=== PATIENT | female | born 2005 | race African-American/Black ===

== ENCOUNTER 2025-03-20 17:13 | Inpatient (IN) | payer MEDICARE, MEDICAID ==
[~2025-03-20] VITALS: Ht 153 cm; Wt 95.9 kg
[2025-03-20 18:21] LABS: PLATELET COUNT (AUTO) 248 K/uL (150-450); RED BLOOD CELL COUNT(AUTO) 4.51 MIL/uL (4.00-5.20); RED CELL DISTRIBUTION WIDTH 13.7 % (11.5-14.5); WHITE BLOOD COUNT (AUTO) 8.9 K/uL (4.5-11.0)
[2025-03-20 18:28] LABS: CALCIUM, TOTAL 8.7 mg/dL (8.8-10.5); CREATININE 0.84 mg/dL (0.60-1.30); GLOMERULAR FILTR. RATE CALC > 60 mL/min (>60); GLUCOSE,RANDOM 112 mg/dL (70-110); SODIUM SERUM 139 mmol/L (136-145); UREA NITROGEN, BLOOD 8 mg/dL (7-18)
[2025-03-20 18:59] LABS: PH,URINE DRUG SCREEN 6.0 (5.0-8.0)
[2025-03-20 19:15] LABS: ALCOHOL, URINE DRUG SCREEN NEGATIVE (NEGATIVE); AMPHET/METH SCREEN,URINE NEGATIVE (NEGATIVE); BARBITURATE SCREEN, URINE NEGATIVE (NEGATIVE); CANNABINOID SCREEN,URINE NEGATIVE (NEGATIVE); COCAINE SCREEN,URINE NEGATIVE (NEGATIVE); METHADONE SCREEN, URINE NEGATIVE (NEGATIVE)
[2025-03-20 19:36] LABS: COVID AG,FIA SOURCE NASAL SWAB
[2025-03-20] MEDS: ZOLPIDEM TARTRATE 10 MG TABLET PO PRN (19:38)
[2025-03-20 19:58] LABS: SARS-COV2 (COVID) ANTIGEN,FIA Negative (Negative)
[2025-03-20 23:55] VITALS: BP 116/86; PULSE 76; RESP 16; TEMP 97.3; O2SAT 99
[2025-03-21] MEDS: ATOMOXETINE HCL 40 MG CAPSULE PO SCH (08:24)
[2025-03-21] MEDS: DIVALPROEX SODIUM 500 MG DR TABLET PO SCH (08:24)
[2025-03-21 09:00] VITALS: BP 150/98; PULSE 96; RESP 8; TEMP 98
[2025-03-21] MEDS ORDERED: MAGNESIUM HYDROXIDE SUSPENSION 30 ML UDCUP PO PRN (10:30)
[2025-03-21] MEDS ORDERED: GuaiFENesin/D-METHORPHAN [SUGAR-FREE] 200-20MG/10 ML SYRUP UDCUP PO PRN (10:30)
[2025-03-21] MEDS ORDERED: NICOTINE 14 MG/24 HOUR PATCH TD PRN (10:30)
[2025-03-21] MEDS ORDERED: ALBUTEROL SULFATE HFA 90 MCG/PUFF 8 GM INHALER IH PRN (10:30)
[2025-03-21] MEDS ORDERED: LOPERAMIDE HCL 2 MG CAPSULE PO PRN (10:30)
[2025-03-21] MEDS ORDERED: ONDANSETRON 4 MG TABLET PO PRN (10:30)
[2025-03-21] MEDS ORDERED: PETROLATUM,WHITE 28 GM JELLY TP PRN (10:30)
[2025-03-21] MEDS ORDERED: MAG HYDROX/ALUMINUM HYD/SIMETH ES 30 ML SUSPENSION UDCUP PO PRN (10:30)
[2025-03-21] MEDS ORDERED: ACETAMINOPHEN 325 MG TABLET PO PRN (10:30)
[2025-03-21] MEDS ORDERED: IBUPROFEN 400 MG TABLET PO PRN (10:30)
[2025-03-21] MEDS ORDERED: DOCUSATE SODIUM 100 MG CAPSULE PO PRN (10:30)
[2025-03-21] MEDS: LURASIDONE HCL 60 MG TABLET PO SCH (17:54)
[2025-03-21] MEDS: TERBINAFINE HCL 1% 30 GM CREAM TP SCH (19:59)
[2025-03-21] MEDS: MELATONIN 5 MG TABLET PO SCH (21:03)
[2025-03-21 22:45] VITALS: BP 132/73; PULSE 91; RESP 16; TEMP 97.9; O2SAT 99
[2025-03-22 08:05] LABS: CHOL/HDL RATIO 4.2 (3.9-5.7); LDL CHOL (CALC.) 111.0 mg/dL (0-130)
[2025-03-22 14:12] VITALS: BP 112/63; PULSE 87; RESP 16; TEMP 98; O2SAT 99
[2025-03-22 20:00] VITALS: BP 117/62; PULSE 90; RESP 16; TEMP 97.9; O2SAT 99
[2025-03-23 10:45] VITALS: BP 109/74; PULSE 99; RESP 18; TEMP 97.8; O2SAT 98
[2025-03-23 22:20] VITALS: BP 108/66; PULSE 77; RESP 18; TEMP 98; O2SAT 100
[2025-03-24 10:16] VITALS: BP 125/81; PULSE 93; RESP 18; TEMP 97.7; O2SAT 99
[2025-03-24 23:56] VITALS: BP 108/74; PULSE 82; RESP 16; TEMP 98.9; O2SAT 97
[2025-03-25 12:52] VITALS: BP 119/71; PULSE 98; RESP 18; TEMP 98.4; O2SAT 97
[2025-03-25 22:38] VITALS: BP 131/80; PULSE 99; RESP 18; TEMP 97.7; O2SAT 99
[2025-03-26 09:48] VITALS: BP 115/76; PULSE 87; RESP 18; TEMP 97.4; O2SAT 98
[2025-03-26 22:45] VITALS: BP 118/75; PULSE 66; RESP 18; TEMP 98; O2SAT 99
[2025-03-27 10:47] VITALS: BP 131/95; PULSE 100; RESP 17; TEMP 98.2; O2SAT 98
[2025-03-27 20:09] VITALS: BP 119/92; PULSE 97; RESP 18; TEMP 97.8; O2SAT 99
[2025-03-28 10:05] VITALS: BP 132/77; PULSE 97; RESP 18; TEMP 97.8; O2SAT 98
[2025-03-29 10:40] VITALS: BP 119/82; PULSE 71; RESP 18; TEMP 98.7; O2SAT 99
[2025-03-29 22:06] VITALS: BP 122/76; PULSE 72; RESP 18; TEMP 98.4; O2SAT 99
[2025-03-30 08:22] VITALS: BP 118/75; PULSE 69; RESP 16; TEMP 98.2; O2SAT 98
[2025-03-30 20:16] VITALS: BP 115/88; PULSE 91; RESP 18; TEMP 98.2; O2SAT 99
[2025-03-31 10:10] VITALS: BP 119/78; PULSE 83; RESP 18; TEMP 98.1; O2SAT 99
[2025-03-31 21:00] VITALS: BP 108/70; PULSE 79; RESP 17; TEMP 98; O2SAT 99
[2025-04-01 08:43] VITALS: BP 134/87; PULSE 99; RESP 17; TEMP 98.1; O2SAT 96
[2025-04-01 21:46] VITALS: BP 130/98; PULSE 91; RESP 18; TEMP 98.2; O2SAT 97
[2025-04-02 08:58] VITALS: BP 126/97; PULSE 100; RESP 18; TEMP 98.4; O2SAT 100
[2025-04-02 20:00] VITALS: BP 106/67; PULSE 81; RESP 17; TEMP 97.8; O2SAT 98
[2025-04-03] MEDS ORDERED: DIVA-112 PO (08:51)
[2025-04-03] MEDS ORDERED: MELA5TAB40 PO (08:51)
[2025-04-03] MEDS ORDERED: ATOM40CA9 PO (08:51)
[2025-04-03] MEDS ORDERED: FLUO-418 PO (08:51)
[2025-04-03] MEDS ORDERED: LURA60TA PO (08:51)
[2025-04-03 09:28] VITALS: BP 118/60; PULSE 78; RESP 18; TEMP 97.8; O2SAT 97
== END 2025-04-03 17:15 | disposition home or self-care (01) | DRG 885 ==
LOC: EMS 17:13 → 3EC 03-21 00:19
PROVIDERS: ADMIT Psychiatry & Neurology Psychiatry; ATTEND Psychiatry & Neurology Psychiatry
PROC: GZHZZZZ Group Psychotherapy (ICD-10-PCS; principal; 2025-03-21)
PROC: GZ52ZZZ Individual Psychotherapy, Cognitive (ICD-10-PCS; 2025-03-26)
DX: F25.0 Schizoaffective disorder, bipolar type (principal); Z68.41 Body mass index [BMI] 40.0-44.9, adult; R45.851 Suicidal ideations; Z20.822 Contact with and (suspected) exposure to COVID-19; I10 Essential (primary) hypertension; F90.9 Attention-deficit hyperactivity disorder, unspecified type; G47.00 Insomnia, unspecified; F41.9 Anxiety disorder, unspecified; R73.9 Hyperglycemia, unspecified; E66.9 Obesity, unspecified; F64.0 Transsexualism; Z79.899 Other long term (current) drug therapy; Z91.51 Personal history of suicidal behavior
CPT/HCPCS: 80048; 80061; 80164; 80307; 83036; 84443; 84703; 85025; 87081; 99285; G0480